=== PATIENT | female | born 1945 | race Caucasian/White ===

== ENCOUNTER 2020-02-13 07:56 | Day surgery (SDC) | payer OTHER ==
[~2020-02-13 07:56] MED LIST: PNEU16DI2; SYNTHROID112 MCG PO
== END 2020-02-13 18:35 | disposition home or self-care (01) ==
LOC: CIR.AMB 07:56 → ADM 11:00 → CIR.AMB 11:00
PROVIDERS: ATTEND Colon & Rectal Surgery
DX: K62.4 Stenosis of anus and rectum (principal)

== ENCOUNTER 2021-06-16 05:10 | Emergency (ER) | payer OTHER ==
[~2021-06-16] VITALS: Ht 154.9 cm; Wt 63.5 kg
[2021-06-16] MEDS ORDERED: ROSUVASTATIN CAL5 MG PO (05:13)
== END 2021-06-16 12:30 | disposition home or self-care (01) ==
LOC: ER 05:10 → CPU-OBS 05:11 → ER 12:30
DX: M94.0 Chondrocostal junction syndrome [Tietze] (principal); R07.89 Other chest pain; E03.8 Other specified hypothyroidism; Z03.818 Encounter for observation for suspected exposure to other biological agents ruled out

== ENCOUNTER 2022-07-16 11:01 | Emergency (ER) | payer OTHER ==
[~2022-07-16] VITALS: Ht 154.9 cm; Wt 68.0 kg
[~2022-07-16 11:01] MED LIST changes: +ROSUVASTATIN CAL5 MG PO
== END 2022-07-16 14:22 | disposition home or self-care (01) ==
LOC: ER 11:01
DX: R51.9 Headache, unspecified (principal)